=== PATIENT | male | born 1990 | race Caucasian/White ===

== ENCOUNTER 2020-11-17 21:17 | Emergency (ER) | payer BC, OTHER ==
[~2020-11-17] VITALS: Ht 170.2 cm; Wt 65.9 kg
[2020-11-17 23:43] VITALS: BP 111/76
[2020-11-17] MEDS ORDERED: ondansetron 4mg rapidly disintigrating tab PO ONE (23:45)
[2020-11-17] MEDS ORDERED: SULF1TAB49 PO (23:45)
[2020-11-17] MEDS ORDERED: acetaminophen 325mg tablet PO ONE (23:45)
[2020-11-17] MEDS ORDERED: sulfamethoxazole/trimethoprim DS (800/160mg) tablet PO ONE (23:45)
[2020-11-17] MEDS ORDERED: TETanus/Pertussis (Acell)/Diphther VAC/PF (Tdap-Adult) 0.5ml syringe IMVAC ONE (23:45)
== END 2020-11-18 00:14 | disposition home or self-care (01) ==
LOC: ER 21:18
DX: L03.114 Cellulitis of left upper limb (principal); M79.602 Pain in left arm; R50.9 Fever, unspecified; Z20.3 Contact with and (suspected) exposure to rabies; Z72.89 Other problems related to lifestyle; Z79.2 Long term (current) use of antibiotics
CPT/HCPCS: 90471; 90715; 99284